=== PATIENT | female | born 1980 | race Asian ===

== ENCOUNTER 2020-06-18 11:15 | Outpatient (CLI) | payer OTHER ==
[2020-06-18 16:03] VITALS: BP 145/88
--- NOTE | 2020-06-18 16:03 | SLEEP CARE CONSULTATION ---
Information from patient questionnaire entered by Radha De Leon. I have reviewed and concur with the information entered by Radha De Leon. This document represents the service I personally performed and the decisions made by me, Yanelis Olivares ARNP. History of Present Illness Service Date and Time: 06/18/2020 1115 Reason for Visit: New patient, Previously diagnosed sleep apnea, sleep apnea on CPAP therapy (since 2004) Chief Complaint: reports: Other (Sleep apnea-new doctor) Duration of Symptoms: 15 plus years Usual bedtime: 10:30-11 PM Time it takes to fall asleep: Less than 5 min typically Snores at night: No Observed to quit breathing while asleep: No Sleeps alone due to snoring: No Number of times waking at night: 0-1 Reasons for waking at night: reports: Bathroom. denies: Choking, Snoring, Gasping for air, Pain Toss, Turn, or Twitch while sleeping: Yes Recalls having dreams: No Usually gets out of bed at: 7:30 AM Feels refreshed in the morning: Yes (Sometimes after a shower, she is not a morning person) Morning headache: No Sleepy or fatigued during the day: Yes Ever fallen asleep while driving: No (But have had to tie puller; none since being on CPAP) Takes day naps: Yes Dreams during day naps: No Prior sleep studies: Yes Year and Where: [id number] [facility] Additional HPI information: BETSY ROCHA was diagnosed to have severe, AHI 67 (per patient), obstructive sleep apnea-hypopnea syndrome in 2004 at [facility] and comes in today for an establishing appointment for CPAP therapy. She did not bring in a copy of her sleep study or any chart notes today. - Parasomnia Symptoms Ever been unable to move upon waking from sleep: No Walks in sleep: No Talks in sleep: No Ever acted out dreams in sleep: No Ever felt weak in the knees when startled or emotional: No Bothered by creepy, crawly, restless sensations in legs: Yes (RLS diagnosis; now on iron for treatment 3 x a week) Problems with memory or concentration: No CPAP Compliance Data - Data Reviewed with Patient Average duration of nightly device use: 6.42 Compliance rate %: 86 (26 of 30 days used) Current pressure setting (cmH2O): 12 Humidity settin-2 Average residual AHI: 0.6 Average large leak: 33.1 Compliance data discussion: She has had same machine since onset of CPAP treatment in 2004. The machine quit working in December. Her sleep doctor has left area or retired. She borrowed an old machine from sister that had right pressure setting of 12 cm H2O and has been using this since December. She uses the old school gel nose mask and states that it does have an air leak around the hose that hooks onto the mask in front. She does not snore when using the machine. She does feel she can't get to sleep without CPAP and feels more rested with using it. I was able to get some figures off of the borrowed machined which are: Her 30 day average was 6.42 hours/night. She used it 26/30 days. She has a 30 day average system leak 33.1. Her 30 day AHI showing 0.6. She has not change the cushion on the mask for a long time. Subjective Patient concerns: reports: dry mouth, nose, throat (dry mouth). denies: aerophagia, mask discomfort, air blowing in eyes, mask leak noise, condensation in mask/hose, nasal congestion, epistaxis, other Observed to snore while using device: No Current pressure setting perceived as: too low (initially pressure feel too low) On therapy, patient: reports: sleeping better, awakening more refreshed, being more awake and alert during the day, more rested overall. denies: drowsiness while driving Initial [place] Sleepiness Scale score: 7 (in 2019 with CPAP use) Past Medical History Past Medical History: reports: Hypertension, Diabetes, Insulin resistance, GERD. 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 Patient is Single and lives in [place]. Have you smoked in the past 12 months: No Alcohol use: No Caffeine use: Yes Caffeine amount and frequency: Glass/cup couple of times a week Family History Family history of sleep disordered breathing: Yes (Mom/dad, sister, one brother. Dad has central apnea on Vpap,mom bipap) Family Hx Sleep Apnea: Mother: Sleep apnea - Treated, Father: Sleep apnea - Treated, Sibling: Sleep apnea - Treated Allergies and Home Medications Drug allergies reviewed: Yes (NKDA) Home medication list reviewed: Yes (see list) Review of Systems Weight loss over past 5 years: 15-20 Cardiovascular: reports: high blood pressure. denies: palpitations, chest pain, irregular heart rate or pulse, leg or foot swelling, have to sleep sitting up Respiratory: denies: shortness of breath, chronic cough Gastrointestinal: reports: heartburn. denies: difficulty swallowing Neurological: denies: headaches, seizure, head trauma, disorientation, speech dysfunction, gait or balance problems Psychiatric: denies: anxiety, mood disorder, claustrophobia Ear/Nose/Throat: reports: dry mouth/throat, tonsillectomy, wisdom teeth removed. denies: nasal congestion, sinus problems, nose bleeds, hoarseness, injury to nose Endocrine: reports: other (diabetic). denies: thyroid disease Musculoskeletal: denies: joint pain, back pain, muscle pain or cramping, mobility problems Immunologic: denies: allergies to food or environment Physical Exam Blood Pressure: 145/88 Cuff size: long Heart Rate: 105 (her normal) O2 Saturation: 98 Height: 6 ft Weight: 254 lb 3.2 oz Body Mass Index: 34.4 BMI Classification: Obese Neck circumference: 17 (inches) HEENT: No craniofacial malformation Nostrils: patent to airflow Turbinates: normal Septum: midline Mouth and throat: normal Uvula visualization: 50% Mallampati Class II Tongue: normal in size Tonsils: absent bilaterally Chin and jaw: normal size and position Neck: normal w/o lymphadenopathy or thyromegaly Heart: regular rate and rhythm Lungs: clear bilaterally Impression and Plan 1. Obstructive Sleep Apnea-Hypopnea Syndrome, severe, with good treatment compliance and good apnea control. On CPAP therapy, there is improved sleep quality and feels more rested overall. Patient's apnea severity and rationale for treatment to reduce apnea, improve sleep quality and reduce cardiovascular and cerebrovascular events was reviewed. I also reviewed the benefit of consistent device use of CPAP for diabetes, gastric reflux. Patient has a very old machine with limited information. She does have some complaints about feeling the pressure is too low, so we will try her on a range of pressure to see if a different pressure would be more helpful. Patient would like a range and I will set the pressure rand to 10-15 cmH2O. She does not have a copy of her previous study from 2004 for us to verify diagnosis. She states her AHI was found to be 67 during the original study. She was encouraged to obtain and get us a copy of this because without it we may need another sleep study before she may get new equipment. She voiced understanding. * Change auto CPAP pressure to 10-15 cmH2O * Notify me if snoring with mask or feeling that the pressure is too much or too little * Obtain a copy of original sleep study and chart notes for our records. If not able to get these, we will have to repeat a sleep study to verify diagnosis. * Attempt to lose weight * Call this office if any problems using CPAP * Return for follow up in 1-2 months, or sooner if concerns arise Visit Type: In Office Time Spent with Patient (minutes): 40 Provider Statement: I spent 100% of the Face to Face Visit with the patient with greater than 50% spent counseling the patient and coordination of care.
== END 2020-06-18 11:16 | disposition home or self-care (01) ==
LOC: SC 11:15
PROVIDERS: ATTEND Nurse Practitioner Family
DX: G47.33 Obstructive sleep apnea (adult) (pediatric) (principal); E66.9 Obesity, unspecified; Z68.34 Body mass index [BMI] 34.0-34.9, adult
CPT/HCPCS: 99204; 99212

== ENCOUNTER 2020-12-31 11:11 | Outpatient (CLI) | payer OTHER ==
--- NOTE | 2020-12-31 11:35 | SLEEP CARE CONSULTATION ---
Information from patient questionnaire entered by Leila Jones. I have reviewed and concur with the information entered by Leila Jones. This document represents the service I personally performed and the decisions made by , Yanelis Olivares ARNP. History of Present Illness Service Date and Time: 12/31/2020 1111 Previous diagnosis: Mild, Obstructive Sleep Apnea-Hypopnea Syndrome AHI: 12.5 (in 2008) Reason for follow up: first compliance after device update Equipment type: CPAP Equipment obtained from: [employer] (getting supplies) Mask style: Nasal (over the nose) Backup mask available: No (will keep old mask when gets replacements) Last cushion change: since July Prior sleep studies: Yes Year and Where: 2008 - [facility] additional information: BETSY ROCHA was diagnosed to have mild, AHI 12.5, obstructive sleep apnea- hypopnea syndrome and returned today for CPAP therapy first compliance after updating device follow-up. CPAP Compliance Data - Data Reviewed with Patient Average duration of nightly device use: 7 hr Compliance rate %: 77 (last 30 days)(initial 30 - 73%) Current pressure setting (cmH2O): 10-15 Humidity settin Average residual AHI: 0.4 Subjective Missed days of use due to: reports: other (congestion) Patient concerns: denies: aerophagia, mask discomfort, air blowing in eyes, mask leak noise, condensation in mask/hose, nasal congestion, dry mouth, nose, throat, epistaxis, other Observed to snore while using device: No Current pressure setting perceived as: comfortable On therapy, patient: reports: sleeping better, awakening more refreshed, being more awake and alert during the day, more rested overall. denies: drowsiness while driving Initial [place] Sleepiness Scale score: 7 (in 2019 ) Current [place] Sleepiness Scale score: 3 Allergies and Home Medications Home medication list reviewed: Yes (no changes) Review of Systems Review of systems same as previous: Yes (no changes) Physical Exam Heart Rate: 86 O2 Saturation: 98 Height: 6 ft Weight: 250 lb Body Mass Index: 33.9 BMI Classification: Obese Impression and Plan 1. Obstructive Sleep Apnea-Hypopnea Syndrome, mild, with fair treatment compliance and excellent apnea control. On CPAP therapy, the patient has better sleep quality and is more rested overall. She has had some difficulty getting in touch with her DME supplier to order supplies because it is in [place] and there is limited times you can call to get supplies ordered. I will have her check with discharge recreation clerk that she has right phone number so she may order supplies needed. She should be able to change out her mask monthly but has been using her current mask since July. Mask fitting can be improved with washing mask daily and changing mask cushions more frequently to improve mask seal and comfort. Patient's apnea severity and rationale for treatment to reduce apnea, improve sleep quality and reduce cardiovascular and cerebrovascular events was reviewed. I also reviewed the benefit of consistent device use of CPAP for diabetes and gastric reflux. * Continue autoCPAP pressure at 10-15 cmH2O * Notify me if snoring with mask or feeling that the pressure is too much or too little * Attempt to lose weight * Call this office if any problems using CPAP * Return for follow up in 1 year, or sooner if concerns arise Counseling Topics: Spare mask, Weight loss health impact Visit Type: In Office Time Spent with Patient (minutes): 16 Provider Statement: I spent 100% of the Face to Face Visit with the patient with greater than 50% spent counseling the patient and coordination of care.
== END 2020-12-31 11:12 | disposition home or self-care (01) ==
LOC: SC 11:11
PROVIDERS: ATTEND Nurse Practitioner Family
DX: G47.33 Obstructive sleep apnea (adult) (pediatric) (principal); E66.9 Obesity, unspecified; Z68.33 Body mass index [BMI] 33.0-33.9, adult
CPT/HCPCS: 99212

== ENCOUNTER 2021-07-02 10:02 | Outpatient (CLI) | payer OTHER ==
--- NOTE | 2021-07-03 14:35 | XRAY Report ---
PROCEDURE: Foot 3 View RT INDICATIONS: CELLULITIS TECHNIQUE: 3 views of the foot were acquired. COMPARISON: None. FINDINGS: Bones: No fractures or dislocations. No suspicious bony lesions. Mild osteophytic changes are pres ent. Soft tissues: No tibiotalar joint effusion. Achilles tendon appears normal. Soft tissue swelling. IMPRESSION: 1. No acute osseous abnormalities. 2. Mild osteoarthritis. Reviewed by: Cesar Andrade MD on 07/03/2021 2:34 PM PDT Approved by: Cesar Andrade MD on 07/03/2021 2:34 PM PDT Station ID: [id number]
== END 2021-07-02 23:59 | disposition home or self-care (01) ==
LOC: DI.N 10:02
PROVIDERS: ATTEND Family Medicine
DX: L03.90 Cellulitis, unspecified (principal); M19.071 Primary osteoarthritis, right ankle and foot

== ENCOUNTER 2021-08-21 08:00 | Outpatient (CLI) | payer OTHER ==
[2021-08-21 12:11] LABS: BASOPHILS # (AUTO) 0.1 10^3/uL (0.0-0.1); BASOPHILS % (AUTO) 0.7 %; EOSINOPHILS # (AUTO) 0.1 10^3/uL (0.0-0.7); HCT - HEMATOCRIT 51.3 % (37.0-47.0); HGB - HEMOGLOBIN 15.9 g/dL (12.0-16.0); LYMPHOCYTES # (AUTO) 2.5 10^3/uL (1.5-3.5); LYMPHOCYTES % (AUTO) 28.1 %; MEAN CORPUSCULAR HEMOGLOBIN 29.8 pg (27.0-31.0); MEAN CORPUSCULAR VOLUME 96.1 fL (81.0-99.0); MEAN PLATELET VOLUME 10.5 fL (7.9-10.8); MONOCYTES # (AUTO) 0.6 10^3/uL (0.0-1.0); MONOCYTES % (AUTO) 6.6 %; NEUTROPHILS # (AUTO) 5.6 10^3/uL (1.5-6.6); NEUTROPHILS % (AUTO) 63.3 %; PLT - PLATELET COUNT 297 10^3/uL (130-450); RED BLOOD COUNT 5.34 10^6/uL (4.20-5.40); RED CELL DISTRIBUTION WIDTH 14.1 % (12.0-15.0); WHITE BLOOD COUNT 8.9 x10^3/uL (4.8-10.8)
[2021-08-21 12:25] LABS: CREATININE,URINE 154.6 mg/dL; MICROALBUM/CREATININE RATIO,UR 32.3 ug/mg (<30.0)
[2021-08-21 12:29] LABS: ESTIMATED AVERAGE GLUCOSE 148 mg/dL (70-100); HEMOGLOBIN A1c% 6.8 % (4.27-6.07)
[2021-08-21 12:39] LABS: THYROID STIMULATING HORMONE 1.76 uIU/mL (0.34-5.60)
[2021-08-21 12:42] LABS: ALBUMIN 4.8 g/dL (3.2-5.5); ALBUMIN/GLOBULIN RATIO 1.8 (1.0-2.2); ALKALINE PHOSPHATASE 29 IU/L (42-121); ALT ALANINE AMINOTRANSFERASE 17 IU/L (10-60); AST ASPARTATE AMINOTRANSFERASE 16 IU/L (10-42); BILIRUBIN,TOTAL 0.8 mg/dL (0.2-1.0); BUN - BLOOD UREA NITROGEN 21 mg/dL (6-20); CALCIUM 9.7 mg/dL (8.5-10.3); CARBON DIOXIDE - CO2 25 mmol/L (21-32); CHLORIDE 102 mmol/L (101-111); CHOL/HDL RATIO 3.1 (<4.4); CHOLESTEROL 147 mg/dL; CREATININE 0.7 mg/dL (0.4-1.0); GFR - MDRD 93 (>89); GLUCOSE 155 mg/dL (70-100); HDL CHOLESTEROL 47 mg/dL; LDL CHOLESTEROL,CALCULATED 78 mg/dL; LDL/HDL RATIO 1.7 (<4.4); SODIUM 138 mmol/L (135-145); TOTAL PROTEIN 7.5 g/dL (6.7-8.2); TRIGLYCERIDES 111 mg/dL; VLDL CHOLESTEROL 22 mg/dL
== END 2021-08-21 23:59 | disposition home or self-care (01) ==
LOC: LAB.WCP 08:00
PROVIDERS: ATTEND Family Medicine
DX: I10 Essential (primary) hypertension (principal); E11.8 Type 2 diabetes mellitus with unspecified complications; E78.5 Hyperlipidemia, unspecified
CPT/HCPCS: 36415; 80053; 80061; 82043; 82570; 83036; 83721; 84443; 85025

== ENCOUNTER 2022-03-16 15:28 | Outpatient (CLI) | payer OTHER ==
--- NOTE | 2022-03-19 16:22 | Mammography Report ---
BILATERAL DIGITAL SCREENING MAMMOGRAM 3D/2D: 03/16/2022 CLINICAL: Family history of breast cancer. Baseline exam Routine screening. No prior exams were available for comparison. The tissue of both breasts is heterogeneously dense. T his may lower the sensitivity of mammography. There is a possible oval asymmetry with an indistinct margin in the left breast at 6 o'clock anterior depth. No other significant masses, calcifications, or other findings are seen in either breast. IMPRESSION: INCOMPLETE: NEEDS ADDITIONAL IMAGING EVALUATION The possible oval asymmetry in the left breast is indeterminate. Additional views with possible ultr asound are recommended. The patient has a markedly elevated lifetime risk of breast cancer. Screening MRI is recommended in c onjunction to screening mammogram in patients with an increased lifetime risk of breast cancer. This exam was interpreted at Station ID: [id number]. NOTE: For mammograms, a report in lay terms will be sent to the patient. Approximately 15% of breast malignancies will not be visualized mammographically. In the management of a palpable breast mass, a negative mammogram must not discourage biopsy of a clinically suspicious lesion. Electronically Signed By: Darrian Lerma M.D. jr/:03/17/2022 09:01:59 ACR BI-RADS Category 0: Incomplete 3340F PARENCHYMAL PATTERN: (D) - The breast(s) demonstrate(s) heterogeneously dense fibroglandular aditya tello. BI-RADS CATEGORY: (0) - 0 Mammo and [place] [id number] Immediate follow-up LATERALITY: (B)
== END 2022-03-16 15:29 | disposition home or self-care (01) ==
LOC: DI.N 15:28
DX: Z12.31 Encounter for screening mammogram for malignant neoplasm of breast (principal); Z80.3 Family history of malignant neoplasm of breast; R92.8 Other abnormal and inconclusive findings on diagnostic imaging of breast

== ENCOUNTER 2023-04-22 09:38 | Outpatient (CLI) | payer OTHER ==
[2023-04-22 12:16] LABS: BASOPHILS # (AUTO) 0.1 10^3/uL (0.0-0.1); BASOPHILS % (AUTO) 1.1 %; EOSINOPHILS # (AUTO) 0.1 10^3/uL (0.0-0.7); EOSINOPHILS % (AUTO) 1.5 %; HCT - HEMATOCRIT 48.8 % (37.0-47.0); HGB - HEMOGLOBIN 15.8 g/dL (12.0-16.0); LYMPHOCYTES % (AUTO) 29.9 %; MEAN CORPUSCULAR HEMOGLOBIN 29.8 pg (27.0-31.0); MEAN CORPUSCULAR HGB CONC 32.4 g/dL (32.0-36.0); MEAN CORPUSCULAR VOLUME 92.1 fL (81.0-99.0); MEAN PLATELET VOLUME 10.2 fL (7.9-10.8); MONOCYTES # (AUTO) 0.5 10^3/uL (0.0-1.0); MONOCYTES % (AUTO) 7.2 %; NEUTROPHILS # (AUTO) 3.9 10^3/uL (1.5-6.6); PLT - PLATELET COUNT 347 10^3/uL (130-450); WHITE BLOOD COUNT 6.6 x10^3/uL (4.8-10.8)
[2023-04-22 12:30] LABS: ALBUMIN 4.5 g/dL (3.2-5.5); ALBUMIN/GLOBULIN RATIO 1.4 (1.0-2.2); ALKALINE PHOSPHATASE 29 IU/L (42-121); ALT ALANINE AMINOTRANSFERASE 19 IU/L (10-60); AST ASPARTATE AMINOTRANSFERASE 19 IU/L (10-42); BILIRUBIN,TOTAL 0.6 mg/dL (0.2-1.0); BUN - BLOOD UREA NITROGEN 22 mg/dL (6-20); CARBON DIOXIDE - CO2 26 mmol/L (21-32); CHLORIDE 105 mmol/L (101-111); CHOL/HDL RATIO 3.4 (<4.4); CHOLESTEROL 150 mg/dL; CREATININE 0.8 mg/dL (0.4-1.0); GFR - MDRD 79 (>89); GLUCOSE 172 mg/dL (70-100); HDL CHOLESTEROL 44 mg/dL; LDL CHOLESTEROL,CALCULATED 71 mg/dL; LDL/HDL RATIO 1.6 (<4.4); POTASSIUM 3.9 mmol/L (3.5-5.0); SODIUM 139 mmol/L (135-145); TOTAL PROTEIN 7.7 g/dL (6.7-8.2); TRIGLYCERIDES 175 mg/dL; VLDL CHOLESTEROL 35 mg/dL
[2023-04-22 12:41] LABS: ESTIMATED AVERAGE GLUCOSE 169 mg/dL (70-100); HEMOGLOBIN A1c% 7.5 % (4.27-6.07)
[2023-04-22 12:46] LABS: THYROID STIMULATING HORMONE 1.79 uIU/mL (0.34-5.60)
[2023-04-22 12:50] LABS: CREATININE,URINE 39.8 mg/dL; MICROALBUM/CREATININE RATIO,UR 17.6 ug/mg (<30.0); MICROALBUMIN,URINE 0.7 mg/dL (0-300.0)
== END 2023-04-22 09:39 | disposition home or self-care (01) ==
LOC: LAB.N 09:38
PROVIDERS: ATTEND Physician Assistant
DX: E11.9 Type 2 diabetes mellitus without complications (principal)
CPT/HCPCS: 36415; 80053; 80061; 82043; 82570; 83036; 83721; 84443; 85025

== ENCOUNTER 2023-05-19 09:20 | Outpatient (CLI) | payer OTHER ==
--- NOTE | 2023-06-06 13:32 | Mammography Report ---
BILATERAL DIGITAL SCREENING MAMMOGRAM 3D/2D: 05/19/2023 CLINICAL: Routine screening. Comparison is made to exams dated: 04/27/2022 mammogram - [facility], 03/16/2022 mammogram - [facility], and 04/27/2022 ultrasound - [facility]. Both breasts are extremely dense, which lowers the sensitivity of mammography (category d />75% gland ular tissue). No significant masses, calcifications, or other findings are seen in either breast. There has been no significant interval change. IMPRESSION: NEGATIVE There is no mammographic evidence of malignancy. A 1 year screening mammogram is recommended. Based on Tyrer-Cuzick model (a risk assessment model), the patient's lifetime risk is 44.0% and her 1 0 year risk is 7.8%. If a patient has an elevated risk, a more comprehensive evaluation should be con sidered and/or a referral to a genetic counselor. The [place] [employer], [employer], and NCCN Guidelines advise the consideration of Breast MRI as an adjunct to screening mammog meliza in patients whose "Lifetime risk to develop breast cancer" is 20% or higher. This exam was interpreted at Station ID: [id number]. NOTE: For mammograms, a report in lay terms will be sent to the patient. Approximately 15% of breast malignancies will not be visualized mammographically. In the management of a palpable breast mass, a negative mammogram must not discourage biopsy of a clinically suspicious lesion. Electronically Signed By: Ky wise/hector:06/06/2023 08:11:50 letter sent: No_Letter ACR BI-RADS Category 1: Negative 3341F PARENCHYMAL PATTERN: (VD) - The breast(s) demonstrate(s) extremely dense parenchyma, limiting the sen sitivity of mammography. BI-RADS CATEGORY: (1) - 1 Mammogram [id number] 1 year screening LATERALITY: (B)
== END 2023-05-19 09:21 | disposition home or self-care (01) ==
LOC: DI.N 09:20
DX: Z12.31 Encounter for screening mammogram for malignant neoplasm of breast (principal)

== ENCOUNTER 2024-05-22 08:30 | Outpatient (CLI) | payer OTHER ==
--- NOTE | 2024-05-23 08:49 | Mammography Report ---
BILATERAL DIGITAL SCREENING MAMMOGRAM 3D/2D: 05/22/2024 CLINICAL: Routine screening. Family history of breast cancer. Comparison is made to exams dated: 05/19/2023 mammogram - [facility], 04/27/2022 [facility], 04/27/2022 mammogram - [facility], and 03/16/2022 mammogram - [facility]. Both breasts are extremely dense, which lowers the sensitivity of mammography (category d />75% gland ular tissue). No significant masses, calcifications, or other findings are seen in either breast. There has been no significant interval change. IMPRESSION: NEGATIVE There is no mammographic evidence of malignancy. A 1 year screening mammogram is recommended. Based on Tyrer-Cuzick model (a risk assessment model), the patient's lifetime risk is 44.1% and her 1 0 year risk is 8.4%. If a patient has an elevated risk, a more comprehensive evaluation should be con sidered and/or a referral to a genetic counselor. The [place] [employer], [employer], and NCCN Guidelines advise the consideration of Breast MRI as an adjunct to screening mammog meliza in patients whose "Lifetime risk to develop breast cancer" is 20% or higher. This exam was interpreted at Station ID: [id number]. NOTE: For mammograms, a report in lay terms will be sent to the patient. Approximately 15% of breast malignancies will not be visualized mammographically. In the management of a palpable breast mass, a negative mammogram must not discourage biopsy of a clinically suspicious lesion. Electronically Signed By: Nabeel watson/hector:05/22/2024 13:33:15 letter sent: No_Letter ACR BI-RADS Category 1: Negative 3341F PARENCHYMAL PATTERN: (VD) - The breast(s) demonstrate(s) extremely dense parenchyma, limiting the sen sitivity of mammography. BI-RADS CATEGORY: (1) - 1 RECOMMENDATION: (ANNUAL) - Recommend routine annual screening mammography. [id number] 1 year screening LATERALITY: (B)
== END 2024-05-22 08:31 | disposition home or self-care (01) ==
LOC: DI.N 08:30
DX: Z12.31 Encounter for screening mammogram for malignant neoplasm of breast (principal); R92.30 Dense breasts, unspecified; Z80.3 Family history of malignant neoplasm of breast

== ENCOUNTER 2024-07-26 12:32 | Outpatient (CLI) | payer OTHER ==
[2024-07-26 12:56] LABS: CREATININE 0.7 mg/dL (0.6-1.3)
[2024-07-26] MEDS ORDERED: GADOTERATE MEGLUMINE 10 MMOL/20 ML VIAL ONE (13:14)
[2024-07-26] MEDS: GADOTERATE MEGLUMINE 10 MMOL/20 ML VIAL IVP ONE (14:05)
--- NOTE | 2024-07-26 18:10 | MRI Report ---
PROCEDURE: Breast BL W/WO INDICATIONS: INCRESAED RISK OF BREAST CA CONTRAST: CLARISCAN 19.6 ML TECHNIQUE: The patient was placed prone in a dedicated breast imaging coil. Precontrast axial STIR and 3D spoil ed GE without fat saturation sequences were obtained. Both before and after bolus injection of contr ast, sequential 1-minute axial 3D spoiled GE with fat saturation sequences for 3 time points, with gusman btraction images and maximum intensity projections (MIP's) generated. Delayed sagittal spoiled GE im ages with fat saturation were also obtained. Computer-aided detection, including computer algorithm analysis of MRI image data for lesion detectio n and characterization, pharmacokinetic analysis, with further physician review for interpretation, w as performed. COMPARISON: Mammograms dated 05/22/2024 and 05/19/2023. FINDINGS: Image quality: Excellent. There is mild background parenchymal enhancement. Right breast: No suspicious mass, nonmass enhancement, or architectural distortion. No suspicious sk in or nipple abnormalities. No axillary or internal mammary chain adenopathy. Left breast: No suspicious mass, nonmass enhancement, or architectural distortion. No suspicious ski n or nipple abnormalities. No axillary or internal mammary chain adenopathy. Miscellaneous: Visualized portions of the upper abdomen and chest appear unremarkable. IMPRESSION: 1. Right breast without MRI evidence for malignancy. 2. Left breast without MRI evidence for malignancy. Recommend continued annual screening mammograms and consideration for continued annual adjunct screen ing breast MRI. BIRADS 1 (negative) COMMENT: The imaging literature indicates that a negative contrast breast MRI examination has a high sensitivity and a moderate specificity for detecting and excluding invasive carcinomas to a detection threshold of 3-5 mm; nonetheless, appropriate clinical and mammographic follow-up are recommended. MRI is not sensitive for detecting DCIS (ductal carcinoma in situ) and may not detect large invasive neoplasms that show only minimal enhancement such as mucinous carcinoma. If there are suspicious keysha cifications or clinically worrisome palpable masses, then biopsy should still be considered. Invasiv e neoplasms can be hidden by co-existent and benign enhancement caused by mastitis, hormone therapy e ffects, radiation therapy, , and recent biopsy or surgery. False positive examinations can occur in a number of circumstances, including breasts that have recently been subject to invasive pro cedures and those that contain atypical ductal hyperplasia, hormonally stimulated glandular tissue, f at necrosis, or radial scars. Reviewed by: Nabeel Farley MD on 07/26/2024 6:08 PM PDT Approved by: Nabeel Farley MD on 07/26/2024 6:08 PM PDT Station ID: [id number]
== END 2024-07-26 12:33 | disposition home or self-care (01) ==
LOC: LAB 12:32
PROVIDERS: ATTEND Physician Assistant
DX: Z12.39 Encounter for other screening for malignant neoplasm of breast (principal); Z91.89 Other specified personal risk factors, not elsewhere classified
CPT/HCPCS: 36415; 77049; 82565; A9575